=== PATIENT | female | born 1995 | race Asian ===

== ENCOUNTER 2016-03-12 04:55 | Outpatient (CLI) | payer OTHER ==
[~2016-03-12] VITALS: Ht 160 cm; Wt 63.5 kg
[~2016-03-12 04:55] MED LIST: DOCO1CAP10; FERR1TAB23; OYST500T47; PREN1TAB29
[2016-03-12 05:34] VITALS: Ht 160 cm; Wt 63.5 kg
--- NOTE | 2016-03-13 14:09 | EDITING REQUIRED CODING QUERY ---
DIAGNOSIS NEEDED To promote full compliance with coding requirements relating to patient care, physician participation is requested in all cases of mash filter operator uncertainty. Please assist us with the question(s) below: Coding Question: The patient received care in labor and delivery on 03/12/16 as noted within the record. Please document the diagnosis that is being addressed by the medication/treatment. Provider Response: DIAGNOSIS: Pain in Thank you for your assistance, Clare Reis - Gas Plant Repairer
== END 2016-03-12 07:30 | disposition home health service (06) ==
LOC: C.OPB 04:55 → C.LD 04:55 → C.OPB 07:30
PROVIDERS: ATTEND Obstetrics & Gynecology
DX: O26.893 Other specified pregnancy related conditions, third trimester (principal); R52 Pain, unspecified; Z3A.38 38 weeks gestation of pregnancy

== ENCOUNTER 2016-03-20 12:56 | Inpatient (IN) | payer OTHER ==
[~2016-03-20] VITALS: Ht 160 cm; Wt 63.6 kg
[2016-03-20] MEDS ORDERED: LACTATED RINGER'S 1000ML 1,000 ML IV SCH (13:08)
[2016-03-20] MEDS ORDERED: LACTATED RINGER'S 1000ML 1,000 ML IV PRN (13:08)
[2016-03-20 13:29] VITALS: Ht 160 cm; Wt 63.6 kg
[2016-03-20 13:58] LABS: HEMATOCRIT 34.2 % (37-47); MEAN CELL VOLUME 94.5 fL (80-100); MEAN CORPUSCULAR HEMOGLOBIN 33.4 pg (25-34); MEAN CORPUSCULAR HGB CONC 35.4 g/dl (32-36); MEAN PLATELET VOLUME 9.8 fL (7.4-10.4); PLATELET COUNT 234 K/uL (130-400); RED BLOOD COUNT 3.62 M/uL (4.2-5.4); WHITE BLOOD COUNT 10.36 K/uL (4.8-10.8)
[2016-03-20] MEDS ORDERED: LACTATED RINGER'S 1000ML 500 ML IV PRN ×2 (14:10→17:43)
[2016-03-20] MEDS ORDERED: OXYTOCIN 30 UNITS/500ML NSS IV PRN (14:15)
[2016-03-20] MEDS ORDERED: BUTORPHANOL TARTRATE 1 MG/ML VIAL IV PRN (16:15)
[2016-03-20] MEDS ORDERED: BUTORPHANOL TARTRATE 1 MG/ML VIAL ONE (16:24)
[2016-03-20] MEDS ORDERED: BUPIVACAINE 0.25% 30 ML VIAL ONE (16:37)
[2016-03-20] MEDS ORDERED: EpHEDrine SULFATE INJ 50 MG/ML AMP ONE (16:37)
[2016-03-20] MEDS ORDERED: FENTANYL CITRATE INJ 50 MCG/1 ML 2 ML VIAL ONE (16:38)
[2016-03-20] MEDS ORDERED: FENTANYL 2MCG/ML ROPIV 1.25MG/ML 100ML BAG EPI ONE (16:38)
[2016-03-20] MEDS ORDERED: NALOXONE HCL INJ 1 MG in SODIUM CHLORIDE 0.9% 1000ML 1,000 ML IV PRN ×4 (17:43)
[2016-03-20] MEDS ORDERED: NALBUPHINE HCL INJ 10 MG/ML AMP IV PRN (17:45)
[2016-03-20] MEDS ORDERED: PROMETHAZINE HCL INJ 25 MG in SODIUM CHLORIDE 0.9% 50ML 50 ML IV PRN (17:45)
[2016-03-20] MEDS ORDERED: FENTANYL 2MCG/ML ROPIV 1.25MG/ML 100ML BAG EPI PRN (17:45)
[2016-03-20] MEDS ORDERED: DiphenhydrAMINE HCL 50 MG/ML VIAL IV PRN (17:45)
[2016-03-20] MEDS ORDERED: ONDANSETRON INJ 2 MG/ML 2 ML VIAL IV PRN (17:45)
[2016-03-20] MEDS ORDERED: NALOXONE HCL INJ 0.4 MG/1 ML VIAL/CARP IV PRN (17:45)
[2016-03-20] MEDS ORDERED: EpHEDrine SULFATE INJ 50 MG/ML AMP IV PRN (17:45)
[2016-03-21] MEDS ORDERED: LANOLIN OINT EXT PRN ×2 (00:15)
[2016-03-21] MEDS ORDERED: DIPHTHERIA/TETANUS/PERTUSSIS 0.5 ML SYR/VIAL IM. ONE (00:15)
[2016-03-21] MEDS ORDERED: HYDROCORTISONE ACETATE 25 MG SUPP PR PRN (00:15)
[2016-03-21] MEDS ORDERED: BENZOCAINE 20% AER SPR 82.5 GM CAN EXT PRN (00:15)
[2016-03-21] MEDS ORDERED: IBUPROFEN 600 MG TAB PO PRN (00:15)
[2016-03-21] MEDS ORDERED: ACETAMINOPHEN/CODEINE 300/30MG TAB PO PRN ×2 (00:15)
[2016-03-21] MEDS ORDERED: ACETAMINOPHEN 325 MG TAB PO PRN (00:15)
[2016-03-21] MEDS ORDERED: OXYTOCIN 30 UNITS/500ML NSS IV PRN (00:15)
[2016-03-21] MEDS ORDERED: SUPERCREAM 0.870 % 15GM JAR EXT PRN (00:15)
--- NOTE | 2016-03-21 01:14 | Anesthesia Procedure Note ---
Anesthesia Epidural Removal Nt Date & Time Mar 21, 2016 at 01:13 Vital Signs Pain Intensity: 0.0 Notes Mental Status: alert / awake / arousable, participated in evaluation Nausea / Vomiting: adequately controlled Pain: adequately controlled Airway Patency, RR, SpO2: stable & adequate BP & HR: stable & adequate Hydration State: stable & adequate Neuraxial Anesthesia: was administered Anesthetic Complications: no major complications apparent, pt satisfied with anesthetic care Epidural: removed without complications, with tip intact
[2016-03-21 03:55] VITALS: BP 102/60; PULSE 90; TEMP 37.1
[2016-03-21 07:30] VITALS: BP 98/53; PULSE 90; TEMP 36.7
--- NOTE | 2016-03-21 08:08 | DELIVERY SUMMARY ---
DATE OF OPERATION: 03/20/2016 FINDINGS: A viable female infant with Apgars of 8 and 9. Baby delivered spontaneously over a midline second-degree laceration. Cord blood samples obtained, cord blood donation kit collected. Placenta delivered spontaneously. Laceration repaired with 4-0 Vicryl in routine fashion. ESTIMATED BLOOD LOSS: 300 mL LABOR NOTE: The patient is a 20-year-old 1, para 0 with an EDC of 03/23/2016 at 39+ weeks gestational age, who presented to labor and delivery from the office with spontaneous rupture of membranes. The patient states her membranes ruptured at approximately 0900 hours on 03/19/2016 and she was seen in the office where rupture of membranes was confirmed. The patient was having irregular mild contractions. The patient transferred her care to our practice from [place] at 21 weeks gestational age, apparently the EDC was established with an early ultrasound. There has also been a social situation where the father of the baby is not involved and has a restraining order against him. labs show blood type of B positive, antibody negative, rubella immune, hepatitis B negative. She had a normal 1-hour Glucola at 28 weeks and a negative third trimester beta strep culture. Upon admission, the patient was 4 cm dilated, 100% effaced, -1 station with a pronounced forebag. Forebag was ruptured for clear fluid, contractions were irregular and mild, and Pitocin was initiated for ruptured membranes at term. An hour later, the patient became uncomfortable, anesthesia was consulted and an epidural was placed. Over the next 8 hours, the patient progressed to full dilatation and began her second stage. She pushed for approximately an hour, delivering a viable female infant with description as above. Cord was clamped and cut. Cord blood samples were obtained. Cord blood donation kit was collected. Placenta delivered spontaneously. Inspection of the perineum showed a midline second-degree laceration which was repaired with 4-0 Vicryl in routine fashion. Estimated blood loss was 300 mL. Sponge and needle counts were correct. I attest to the content of the Intraoperative Record and any orders documented therein. Any exceptio ns are noted below.
[2016-03-21] MEDS: PRENATAL VITAMIN TAB PO SCH (08:26)
[2016-03-21] MEDS: FERROUS SULFATE 325 MG TAB PO SCH (08:26)
[2016-03-21] MEDS: DOCUSATE SODIUM 100 MG CAP PO SCH ×2 (08:26→19:25)
[2016-03-21 11:55] VITALS: BP 109/70; PULSE 79; TEMP 36.6
[2016-03-21 16:20] VITALS: BP 101/62; PULSE 69; TEMP 36.3
[2016-03-21 19:30] VITALS: BP 114/69; PULSE 78; TEMP 36.8
[2016-03-22 00:30] VITALS: BP 100/65; PULSE 67; TEMP 36.9
--- NOTE | 2016-03-22 06:54 | Progress Note ---
Subjective Mar 22, 2016. Subjective conversation w/ patient, physical exam Ambulation: ambulating normally Voiding: no voiding problems Passing Gas: Yes Diet Tolerance: Regular Diet Lochia: Small Feeding Type: Breast Feeding Pain: No pain reported this morning Review of Systems Constitutional: No chills, No fever Respiratory: No cough, No shortness of breath Cardiac: No chest pain Breast: No breast pain Abdomen: No nausea, No pain, No vomiting Female : No dysuria Objective Vital Signs Date Time Temp Pulse Resp B/P Pulse Ox O2 Delivery O2 Flow Rate FiO2 03/22/16 00:30 Room Air 03/22/16 00:30 36.9 67 18 100/65 Room Air 03/21/16 19:30 Room Air 03/21/16 19:30 36.8 78 18 114/69 Room Air 03/21/16 16:20 Room Air 03/21/16 16:20 36.3 69 20 101/62 Room Air 03/21/16 11:55 36.6 79 18 109/70 Room Air 03/21/16 07:30 Room Air 03/21/16 07:30 36.7 90 18 98/53 Room Air Physical Exam General Appearance: WELL-APPEARING, WD/WN, NO APPARENT DISTRESS Respiratory/Chest: lungs clear, normal breath sounds Cardiovascular: regular rate, rhythm, no gallop, no murmur Abdomen: non tender, soft Fundus: Firm, Relation to Umbilicus (1cm below umbilicus) Extremities: no calf tenderness Laboratory Results Last 24 Hours Test 03/22/16 04:44 Medications Current Inpatient Medications Medications (Trade) Dose Ordered Sig/Mariajose Route Start Time Stop Time Status Last Admin Dose Admin Lactated Ringer's 1,000 ml @ 125 mls/hr Q8H IV 03/20/16 13:08 03/22/16 13:07 03/20/16 14:19 125 MLS/HR Lactated Ringer's (Lr 1000ml) 500 ml @ 999 mls/hr Q31M PRN IV 03/20/16 14:10 04/19/16 14:09 Butorphanol Tartrate (Stadol Inj) 1 mg Q1H PRN IV 03/20/16 16:15 04/19/16 16:14 03/20/16 16:29 1 MG Oxytocin (Pitocin IV) 30 units UD PRN IV 03/21/16 00:15 04/20/16 00:14 Benzocaine (Dermoplast Aero Spr) 1 appln PRN PRN EXT 03/21/16 00:15 04/20/16 00:14 Cocaine HCl (Supercream 0.870% Cr) BID PRN EXT 03/21/16 00:15 04/04/16 00:14 Hydrocortisone Acetate (Anusol Hc Supp) 25 mg BID PRN MI 03/21/16 00:15 04/20/16 00:14 Lanolin (Lanolin Oint) PRN PRN EXT 03/21/16 00:15 04/20/16 00:14 Prenat Multivit/ Fur Repairer/Iron/Folic Ac ( Vitamin Tab) 1 tab DAILY PO 03/21/16 08:00 04/20/16 07:59 03/21/16 08:26 1 TAB Ibuprofen (Motrin Tab) 600 mg Q4H PRN PO 03/21/16 00:15 04/20/16 00:14 Acetaminophen (Tylenol Tab) 650 mg Q6H PRN PO 03/21/16 00:15 04/20/16 00:14 Acetaminophen/ Codeine Phosphate (Tylenol w/ Codeine #3 Tab) 1 tab Q4H PRN PO 03/21/16 00:15 04/20/16 00:14 Acetaminophen/ Codeine Phosphate (Tylenol w/ Codeine #3 Tab) 2 tab Q4H PRN PO 03/21/16 00:15 04/20/16 00:14 Bisacodyl (Dulcolax Tab) 5 mg 20 PO 03/22/16 20:00 03/22/16 20:01 Docusate Sodium (coLACE CAP) 100 mg BID PO 03/21/16 08:00 04/20/16 07:59 03/21/16 19:25 100 MG Ferrous Sulfate (Feosol Tab) 325 mg DAILY PO 03/21/16 08:00 04/20/16 07:59 03/21/16 08:26 325 MG Assessment and Plan Post- Day#: 1 Continue Routine Care: - Vital Signs reviewed and WNL (temp max 36.9) - Blood Type: B+, GBS- , Rubella Immune - Patient doing well clinically - Encourage Ambulation today - Pain well controlled - Tolerating PO Diet Well Resident Physician Supervision Note: I was present with Dr. uGzman during the history and exam. I discussed the case with the resident and agree with the findings and plan as documented in the note. Any exceptions or clarifications are listed here: Doing well. routine care. Documented By: Nerissa North
[2016-03-22 07:25] LABS: HEMATOCRIT 31.8 % (37-47)
[2016-03-22] MEDS: PRENATAL VITAMIN TAB PO SCH (08:21)
[2016-03-22] MEDS: DOCUSATE SODIUM 100 MG CAP PO SCH ×2 (08:21→19:40)
[2016-03-22] MEDS: FERROUS SULFATE 325 MG TAB PO SCH (08:21)
[2016-03-22 08:26] VITALS: BP 111/70; PULSE 67; TEMP 36.5
[2016-03-22 15:30] VITALS: BP 104/62; PULSE 70; TEMP 36.5
[2016-03-22] MEDS ORDERED: BISACODYL 5 MG TABEC PO SCH (20:00)
[2016-03-23 00:35] VITALS: BP 109/65; PULSE 77; TEMP 37; O2SAT 98
--- NOTE | 2016-03-23 06:53 | Progress Note ---
Subjective Mar 23, 2016. Subjective conversation w/ patient, physical exam Ambulation: ambulating normally Voiding: no voiding problems Passing Gas: Yes Diet Tolerance: Regular Diet Lochia: Small Feeding Type: Breast Feeding Pain: 5/10 Pain this morning due to uterine contractions, refused pain meds Review of Systems Constitutional: No chills, No fever Respiratory: No cough, No shortness of breath Cardiac: No chest pain Breast: No breast pain Abdomen: + pain (Generalized abdominal cramping), No nausea, No vomiting Female : No dysuria Objective Vital Signs Date Time Temp Pulse Resp B/P Pulse Ox O2 Delivery O2 Flow Rate FiO2 03/23/16 00:35 37.0 77 16 109/65 98 Room Air 03/23/16 00:35 98 Room Air 03/22/16 15:30 Room Air 03/22/16 15:30 36.5 70 20 104/62 Room Air 03/22/16 08:26 36.5 67 16 111/70 Room Air Physical Exam General Appearance: WELL-APPEARING, WD/WN, NO APPARENT DISTRESS Respiratory/Chest: lungs clear, normal breath sounds Cardiovascular: regular rate, rhythm, no gallop, no murmur Abdomen: non tender, soft Fundus: Firm, Relation to Umbilicus (1cm below umbilicus) Extremities: no calf tenderness Medications Current Inpatient Medications Medications (Trade) Dose Ordered Sig/Mariajose Route Start Time Stop Time Status Last Admin Dose Admin Lactated Ringer's (Lr 1000ml) 500 ml @ 999 mls/hr Q31M PRN IV 03/20/16 14:10 04/19/16 14:09 Butorphanol Tartrate (Stadol Inj) 1 mg Q1H PRN IV 03/20/16 16:15 04/19/16 16:14 03/20/16 16:29 1 MG Oxytocin (Pitocin IV) 30 units UD PRN IV 03/21/16 00:15 04/20/16 00:14 Benzocaine (Dermoplast Aero Spr) 1 appln PRN PRN EXT 03/21/16 00:15 04/20/16 00:14 Cocaine HCl (Supercream 0.870% Cr) BID PRN EXT 03/21/16 00:15 04/04/16 00:14 Hydrocortisone Acetate (Anusol Hc Supp) 25 mg BID PRN MS 03/21/16 00:15 04/20/16 00:14 Lanolin (Lanolin Oint) PRN PRN EXT 03/21/16 00:15 04/20/16 00:14 Prenat Multivit/ [place]/Iron/Folic Ac ( Vitamin Tab) 1 tab DAILY PO 03/21/16 08:00 04/20/16 07:59 03/22/16 08:21 1 TAB Ibuprofen (Motrin Tab) 600 mg Q4H PRN PO 03/21/16 00:15 04/20/16 00:14 Acetaminophen (Tylenol Tab) 650 mg Q6H PRN PO 03/21/16 00:15 04/20/16 00:14 Acetaminophen/ Codeine Phosphate (Tylenol w/ Codeine #3 Tab) 1 tab Q4H PRN PO 03/21/16 00:15 04/20/16 00:14 Acetaminophen/ Codeine Phosphate (Tylenol w/ Codeine #3 Tab) 2 tab Q4H PRN PO 03/21/16 00:15 04/20/16 00:14 Docusate Sodium (coLACE CAP) 100 mg BID PO 03/21/16 08:00 04/20/16 07:59 03/22/16 19:40 100 MG Ferrous Sulfate (Feosol Tab) 325 mg DAILY PO 03/21/16 08:00 04/20/16 07:59 03/22/16 08:21 325 MG Assessment and Plan Post- Day#: 2 Continue Routine Care: - Vital Signs reviewed and WNL (temp max 37.0) - Blood Type: B+, GBS- , Rubella Immune - Patient doing well clinically - Encourage Ambulation today - Pain well controlled with Motrin - Tolerating PO Diet Well - Discharge home Resident Physician Supervision Note: I interviewed and examined the patient. Discussed with Dr. Guzman and agree with findings and plan as documented in the note. Any exceptions or clarifications are listed here: Doing well. Has poor pain control issues, but doing better. Plan d/c today. Documented By: Jennifer Castillo
--- NOTE | 2016-03-23 06:55 | Discharge Instructions ---
Discharge Instructions Admission Reason for Admission: R/O Rupture Of Membranes Discharge Discharge Diagnosis / Problem: Vaginal Delivert Discharge Goals Goal(s): Routine recovery after delivery Medications Continue Dispensed Medications: supercream, dermaplast, tucks, lansinoh Activity Recommendations Activity Limitations: per Instructions/Follow-up section . Instructions / Follow-Up Instructions / Follow-Up ACTIVITY RECOMMENDATIONS: * Gradual return to full activity over the next 2-3 weeks. * No lifting - nothing heavier than baby over the next 2-3 weeks. * Do not engage in vigorous exercise, sexual activity or sports until cleared by your physician. * Do not drive or operate any motorized equipment until cleared by your physician. * You may shower/bathe daily. MEDICATIONS: For discomfort or pain, you may use Acetaminophen (Tylenol), Ibuprofen (Advil), or Naproxen (Aleve) following the package directions. For constipation you may use Colace following the package directions. BREAST CARE: If you are not breast feeding: * Wear a supportive bra 24 hours a day for one to two weeks. * Avoid stimulating your breasts and nipples as much as possible during the first few weeks after delivery. * When taking a shower, have the warm water hit your back, not breasts. * When your breasts feel full, apply ice packs. Usually three to four times a day helps ease the discomfort. * Take a mild pain medication (Tylenol / Motrin) when you are uncomfortable. If breast feeding: * Use breast milk to lubricate nipples. Lansinoh cream may be used for sore nipples. You do not need to remove cream prior to breast feeding. If using a different brand of cream, check the label for directions regarding removal of cream prior to nursing. * Wear a supportive bra. * If having problems with breasts or breast feeding, call a oim consultant or your health care provider. EPISIOTOMY CARE: After delivery, if you have an episiotomy (stitches), the following steps will ease discomfort and aid healing. * For the first 24 hours after delivery, place ice packs next to your episiotomy to help reduce swelling. * After the first 24 hour-period, sitz baths, either portable or in the tub, are suggested. A shower with a shower arm sprayed over the episiotomy may be comforting. * Marine care should be done after each voiding and bowel movement. Squirt warm water from a plastic bottle over the perineum (region of the body between the anus and urinary opening) and pat dry. * Use Dermoplast to ease discomfort. Shake container. Ethel directly over the episiotomy. Place a Tucks on a clean sanitary pad next to your episiotomy. SPECIAL CARE INSTRUCTIONS: When you are discharged from the hospital, it is important for you to follow the instructions listed below: * During the first week at home, you should be able to care for yourself and your baby. In addition, the usual light household activities are encouraged. * Limit your activities to the way you feel. Do not try to clean the house or move furniture. Be sensible. * If you actively engage in sports and have done so up until the time of your delivery, you may resume these activities as soon as you feel able. This may take up to one month or even longer. Use good judgment. * Continue to take your vitamins for at least six weeks after the of your baby. * Your diet need not be limited unless you were on a special diet before your delivery. Breast-feeding mothers need around 2500 calories per day and at least 64-80 ounces of fluid per day (8 to 10 glasses). * You should eat foods from the four major food groups. Crash diets or fad diets are to be avoided. Eating lean meats, fresh fruits and vegetables, low-fat dairy products, high fiber foods and a regular exercise program, will help you get back to your pre- weight without putting your health at risk. * Constipation is sometimes a problem after delivery. Take a mild laxative as needed. If breast feeding, Milk of Magnesia is acceptable to use. You may use a suppository or Fleets enema if no episiotomy. * A daily shower or tub bath is suggested. Be sure to thoroughly and gently dry the perineum. * A bloody vaginal discharge will usually continue until around four weeks post . A small amount of bleeding may continue for as long as six weeks. Vaginal discharge changes from the bright red bleeding after delivery to pink then brownish and finally yellowish-pink before becoming white and disappearing. * Bleeding may increase with activity. Your first period may come in 4-8 weeks. If you are breast feeding, your period may be delayed even longer. * [place] (sex) can begin whenever both you and your partner feel comfortable and do not have any form of genital infection. It is recommended that you wait at least six weeks for internal and external healing to occur. If you have questions, please talk to your health care practitioner. A condom should be used to prevent infection and . * Foreplay, gentle intercourse and lubrication is very important the first several times to prevent pain. A water-based lubricant such as K-Y jelly or Astroglide may be used. * If you have RH negative blood and your baby is RH positive, you will receive RHOGAM by injection prior to discharge. The nurse will give you a card to keep with you that has the date and place that you received RHOGAM after delivery. * During your care, you had a Rubella screen done to check for the presence of rubella antibodies in your blood. If your test was negative, you will receive a Rubella vaccine prior to discharge. This vaccine may cause a fever, soreness at the injection site and flu-like symptoms. If these symptoms persist, notify your health care practitioner. is not advised for one month after a Rubella vaccine. * Verbalizes understanding of car seat law as reviewed with patient nursing. * Car Seat hand-out given and reviewed with patient by nursing. * Shaken baby information reviewed with patient by nursing. Call you doctor if: * Heavy bleeding (saturating several pads an hour) or passing clots the size of your fist. * A fever >101 degrees F (38.3 degrees C) on two occasions four hours apart and /or chills. * Unusual pain in the pelvic or vaginal areas. * "Baby Blues" lasting longer than two weeks. If you have any questions or concerns, call your health care practitioner at . FOLLOW UP VISIT: * Please call the office at to schedule a 6 week examination. It is important you keep this appointment. It is important for you to make arrangements for either yearly or twice yearly check-ups thereafter. Current Hospital Diet Patient's current hospital diet: Regular OB Diet Discharge Diet Recommended Diet: Regular Diet Pending Studies Studies pending at discharge: no Medical Emergencies . Who to Call and When: Medical Emergencies: If at any time you feel your situation is an emergency, please call 911 immediately. . Non-Emergent Contact Non-Emergency issues call your: [facility] . . "Provider Documentation" section prepared by Nasir Guzman. VTE Core Measure Inpt VTE Proph given/why not?: Treatment not indicated
[2016-03-23 08:45] VITALS: BP 118/68; PULSE 87; TEMP 36.5; O2SAT 97
[2016-03-23] MEDS: DOCUSATE SODIUM 100 MG CAP PO SCH (09:25)
[2016-03-23] MEDS: FERROUS SULFATE 325 MG TAB PO SCH (09:25)
[2016-03-23] MEDS: PRENATAL VITAMIN TAB PO SCH (09:25)
[2016-03-23 10:55] VITALS: BP_DIAS 68; PULSE 87; TEMP 36.5
== END 2016-03-23 11:15 | disposition home or self-care (01) | DRG 775 ==
LOC: C.OPB 12:56 → C.LD 12:56 → C.OPB 13:09 → C.OBG 03-21 03:45
PROVIDERS: ADMIT Obstetrics & Gynecology; ATTEND Obstetrics & Gynecology
PROC: 0KQM0ZZ Repair Perineum Muscle, Open Approach (ICD-10-PCS; principal; 2016-03-20)
PROC: 3E033VJ Introduction of Other Hormone into Peripheral Vein, Percutaneous Approach (ICD-10-PCS; principal; 2016-03-20)
PROC: 10E0XZZ Delivery of Products of Conception, External Approach (ICD-10-PCS; principal; 2016-03-20)
PROC: 10907ZC Drainage of Amniotic Fluid, Therapeutic from Products of Conception, Via Natural or Artificial Opening (ICD-10-PCS; principal; 2016-03-20)
DX: O70.1 Second degree perineal laceration during delivery (principal); Z37.0 Single live birth; Z3A.39 39 weeks gestation of pregnancy; O42.02 Full-term premature rupture of membranes, onset of labor within 24 hours of rupture; O76 Abnormality in fetal heart rate and rhythm complicating labor and delivery; O99.02 Anemia complicating childbirth; D64.9 Anemia, unspecified

== ENCOUNTER → 2016-05-06 | Outpatient (CLI) | payer OTHER ==
[~2016-05-06] MED LIST changes: -DOCO1CAP10; -OYST500T47
== END | disposition home or self-care (01) ==
LOC: C.PAPS 08:45
PROVIDERS: ATTEND Obstetrics & Gynecology
DX: Z12.4 Encounter for screening for malignant neoplasm of cervix (principal)